=== PATIENT | male | born 1950 | race Caucasian/White ===

== ENCOUNTER 2017-06-28 08:01 | Emergency (ER) | payer OTHER ==
[~2017-06-28] VITALS: Ht 167.6 cm; Wt 132.3 kg
[~2017-06-28 08:01] MED LIST: AMARYL2 MG PO; ASPIRIN325 MG PO; ASPIRIN81 M2 PO; COZAAR50 MG PO; DILAUDID2 MG PO; FLOMAX0.4 MG PO; GLUCOPHAGE1000 MG PO; HYDROCODON-ACE1 EAC7 PO; JANUVIA100 MG PO; LINZESS290 MCG PO; LOMOTIL TABLET1 EACH PO; LOPERAMIDE2 M1 PO; MUCINEX1200 MG PO; PROAIR HFA8.5 GM IH; PROTONIX40 MG PO; REMERON15 M2 PO; ROXICODONE5 MG PO; SINGULAIR10 MG PO; SYMBICORT60 INHALAT IH; VENTOLIN HFA18 GM IH; ZOCOR10 MG PO; ZOFRAN ODT4 MG PO; ZOFRAN4 MG PO; ZOLOFT50 MG PO
[2017-06-28 09:03] LABS: HEMATOCRIT 42.4 % (38.0-50.0); HEMOGLOBIN 14.5 G/DL (12.5-16.6); MCH 30.5 PG (29.0-34.0); MCHC 34.2 G/DL (30.0-36.0); MCV 89.3 FL (86-99); PLATELET COUNT 185 K/uL (156-360); RBC DIS.WIDTH-CV 12.5 % (11.8-14.6); RBC DIS.WIDTH-SD 41.3 % (39-53); RED BLOOD COUNT 4.75 M/uL (4.00-5.50); WHITE BLOOD COUNT 12.8 K/uL (4.1-10.2)
[2017-06-28 09:16] LABS: CHLORIDE 97 mEq/L (99-109); POTASSIUM 4.7 mEq/L (3.7-5.4); SODIUM 132 mEq/L (136-147)
[2017-06-28 09:18] LABS: GLUCOSE 182 mg/dL (70-99)
[2017-06-28 09:21] LABS: CREATININE 1.2 mg/dL (0.6-1.3); GFR ESTIMATE (CALCULATED) > 59 mL/min/ (58.99-99999)
[2017-06-28 09:22] LABS: UREA NITROGEN (BUN) 13 mg/dL (9-23)
[2017-06-28 09:32] LABS: APPEARANCE CLOUDY ((CLEAR)); BILIRUBIN NEGATIVE; BLOOD MODERATE; COLOR YELLOW ((YELLOW)); GLUCOSE (STRIP) NEGATIVE; KETONES 5; LEUKOCYTES LARGE; NITRITE NEGATIVE; PROTEIN (STRIP) 100; SPECIFIC GRAVITY 1.019 (1.000-1.030); UROBILINOGEN 0.2 MG/DL (0.2-1.0)
[2017-06-28 10:07] LABS: EPITHELIAL CELLS NONE SEEN /HPF; MUCUS NONE SEEN /LPF; RED BLOOD CELLS RARE /HPF (0-5); WHITE BLOOD CELLS TNTC /HPF (0-5)
[2017-06-28 10:08] LABS: BACTERIA 1+ /HPF; UCUL ADDED? YES
[2017-06-28] MEDS ORDERED: CIPRO500 MG PO (10:46)
[2017-06-28] MEDS ORDERED: PERCOCET 5/31 TABLET PO (10:46)
[2017-06-28 11:29] VITALS: BP 143/64
== END 2017-06-28 11:30 | disposition home or self-care (01) ==
LOC: EME 08:01
PROVIDERS: Emergency Medicine
DX: N13.2 Hydronephrosis with renal and ureteral calculous obstruction (principal); N39.0 Urinary tract infection, site not specified; J44.9 Chronic obstructive pulmonary disease, unspecified; E78.5 Hyperlipidemia, unspecified; I10 Essential (primary) hypertension; K21.9 Gastro-esophageal reflux disease without esophagitis; G89.29 Other chronic pain; Z79.82 Long term (current) use of aspirin; Z87.442 Personal history of urinary calculi; Z93.3 Colostomy status
CPT/HCPCS: 74176; 80048; 81003; 83605; 85027; 87086; 99281; 99285; J0696; J2270; J2405; J7030